=== PATIENT | female | born 1930 | race Caucasian/White ===

== ENCOUNTER 2017-06-07 10:26 | Inpatient (IN) | payer OTHER, BC ==
[~2017-06-07] VITALS: Ht 152.4 cm; Wt 89.8 kg
[~2017-06-07 10:26] MED LIST: ACTONEL35 MG PO; ALDACTONE25 MG PO; AMOXICILLIN500 MG PO; BREO ELLIPTA I1 EACH IH; BUMETANIDE1 MG PO; BUMEX0.5 MG PO; BUMEX1 MG PO; BUMEX2 MG PO; BYSTOLIC5 MG PO; CARAFATE100 MG/ML PO; CITRACAL + D M1 EACH PO; COLACE100 MG PO; CORTIZONE-10 PL57 GM TP; COUMADIN1 MG PO; COUMADIN2.5 MG PO; COUMADIN3 MG PO; COUMADIN4 MG PO; COUMADIN5 MG PO; CRESTOR20 MG PO; DESENEX85 GM TP; DUONEB 2.5-0.5 M3 ML AEROSOL; DUONEB 2.5-0.5 M3 ML PEP; FORTEO20 MICROGR SC; HYDROMORPHONE HC2 MG PO; HYOSCYAMINE0.125 MG SL; INVANZ1 GM IM; KENALOG,ARISTOC80 GM TP; LIDODERM 5% P1 PATCH TD; LIPITOR20 MG PO; LISINOPRIL10 MG PO; MELATONIN5 M1 PO; METOLAZONE2.5 MG PO; MILK OF MAGN PO; MIRALAX17 GM PO; NITROSTAT0.4 MG SL; NYSTATIN15 GM TP; OYSTER SHELL C1 EA16 PO; PATANOL OP100 DROP/5 BOTH EYES; PHENERGAN25 MG/ML IM; PHENERGAN50 MG/1 M1 IM; POLYETHYLENE GL17 GM PO; PREDNISONE5 MG PO; PRENATAL TABLE1 EAC3 PO; PREVACID30 MG PO; PRINIVIL20 MG PO; PROMETHAZINE HC25 M1 PO; PROTONIX40 MG PO; RISEDRONATE SOD35 M1 PO; ROSUVASTATIN CA20 MG PO; TOPROL XL25 MG PO; TRIAMCINOLONE A15 GM TP; TYLENOL WITH C1 EACH PO; VENTOLIN HFA18 GM IH; VITAMIN B-6100 MG PO; VITAMIN D31000 UNI2 PO; VITAMIN D31000 UNIT PO; ZESTRIL10 MG PO; ZYRTEC10 M3 PO; [UNRECOGNIZED DRUG - CODE] DT
[2017-06-07 11:24] LABS: ADD MIUA? YES; BILIRUBIN NEGATIVE; BLOOD SMALL; COLOR YELLOW ((YELLOW)); GLUCOSE (STRIP) NEGATIVE; KETONES NEGATIVE; LEUKOCYTES MODERATE; NITRITE NEGATIVE; PROTEIN (STRIP) NEGATIVE; SPECIFIC GRAVITY 1.013 (1.000-1.030); UROBILINOGEN 0.2 MG/DL (0.2-1.0)
[2017-06-07 11:31] LABS: BACTERIA RARE /HPF; EPITHELIAL CELLS RARE /HPF; HYALINE CASTS 0-5 /LPF; MUCUS TRACE /LPF; RED BLOOD CELLS 0-5 /HPF (0-5); UCUL ADDED? YES; WHITE BLOOD CELLS 20-30 /HPF (0-5)
[2017-06-07 11:57] LABS: EOSINOPHIL (%) 0.3 % (0-5); HEMATOCRIT 27.6 % (36.0-46.0); IMMATURE GRANULOCYTE (%) 0.7 % (0.0-0.7); IMMATURE GRANULOCYTE COUNT 0.1 K/uL; INSTRUMENT ABS NEUTROPHIL CT 10.2 K/uL; LYMPHOCYTE COUNT 1.3 K/uL (1.0-2.8); MCH 29.1 PG (29.0-34.0); MCHC 32.2 G/DL (30.0-36.0); MEAN PLAT.VOLUME 8.7 uM^3 (9.5-12.4); MONOCYTE (%) 13.9 % (3-12); MONOCYTE COUNT 1.9 K/uL (0-0.8); NEUTROPHIL (%) 75.5 % (45-76); NEUTROPHIL COUNT 10.2 K/uL (1.8-6.4); RBC DIS.WIDTH-CV 13.4 % (11.8-14.6); RBC DIS.WIDTH-SD 44.2 % (39-53); RED BLOOD COUNT 3.06 M/uL (3.80-5.20); WHITE BLOOD COUNT 13.5 K/uL (4.1-10.2)
[2017-06-07 12:10] LABS: MCV 90.2 FL (83-99); PLATELET COUNT 302 K/uL (156-360)
[2017-06-07 12:14] LABS: CHLORIDE 94 mEq/L (99-109); POTASSIUM 5.1 mEq/L (3.7-5.4); SODIUM 130 mEq/L (136-147)
[2017-06-07 12:16] LABS: GLUCOSE 106 mg/dL (70-99)
[2017-06-07 12:17] LABS: ANION GAP 13 MEQ/L (2-14)
[2017-06-07 12:18] LABS: TOTAL BILIRUBIN 0.5 mg/dL (0.0-1.0)
[2017-06-07 12:20] LABS: ALKALINE PHOSPHATASE 77 IU/L (3-129); GFR ESTIMATE (CALCULATED) 13 mL/min/; TROP-I INTERPRETATION NEGATIVE; TROPONIN-I 0.02 ng/mL (0.0-0.30)
[2017-06-07 12:21] LABS: UREA NITROGEN (BUN) 59 mg/dL (9-23)
[2017-06-07 12:23] LABS: LIPASE 11 U/L (1.0-51.0)
[2017-06-07] MEDS ORDERED: SERTRALINE HCL50 MG PO (15:30)
[2017-06-07] MEDS ORDERED: LEVOTHYROXINE25 MCG PO (15:30)
[2017-06-07] MEDS ORDERED: DOCUSATE SODIU100 M1 PO (15:31)
[2017-06-07] MEDS ORDERED: RANITIDINE HCL150 MG PO (15:32)
[2017-06-07] MEDS ORDERED: BUMEX1 MG PO (15:33)
[2017-06-07 15:34] LABS: INTER. NORMALIZED RATIO 3.8; PROTHROMBIN TIME 43.8 SEC (10.2-12.9)
[2017-06-07] MEDS ORDERED: CYANOCOBALAM1000 MCG PO (15:35)
[2017-06-07] MEDS ORDERED: KETOTIFEN FUMARA5 M1 BOTH EYES (15:37)
[2017-06-07] MEDS ORDERED: URSODIOL300 MG PO (15:46)
[2017-06-07] MEDS ORDERED: TYLENOL WITH C1 EACH PO (15:46)
[2017-06-07] MEDS ORDERED: SODIUM CHLORIDE45 ML BOTH NARES (15:47)
[2017-06-07] MEDS ORDERED: DERMOTIC20 ML BOTH EARS (15:48)
[2017-06-07] MEDS ORDERED: LORAZEPAM0.5 MG PO (15:50)
[2017-06-07] MEDS ORDERED: ZOFRAN ODT4 MG PO (15:51)
[2017-06-07] MEDS ORDERED: GAVISCON ES CH1 EACH PO (15:52)
[2017-06-07 17:04] VITALS: BP 138/74
[2017-06-07 18:34] LABS: CARBON DIOXIDE (BICARBONATE) 29.9 MEQ/L (20-31)
[2017-06-07 20:34] LABS: UR CREATININE CONCENTRATION 173.8 MG/DL
[2017-06-07 23:46] VITALS: BP 126/57
[2017-06-08 04:21] VITALS: BP 115/58
[2017-06-08 06:05] LABS: MCH 29.6 PG (29.0-34.0); MCHC 31.9 G/DL (30.0-36.0); MCV 92.9 FL (83-99); MEAN PLAT.VOLUME 8.8 uM^3 (9.5-12.4); PLATELET COUNT 290 K/uL (156-360); RBC DIS.WIDTH-CV 13.6 % (11.8-14.6); RBC DIS.WIDTH-SD 46.8 % (39-53); WHITE BLOOD COUNT 7.9 K/uL (4.1-10.2)
[2017-06-08 06:19] LABS: INTER. NORMALIZED RATIO 3.7; PROTHROMBIN TIME 42.9 SEC (10.2-12.9)
[2017-06-08 06:30] LABS: ANION GAP 11 MEQ/L (2-14); CHLORIDE 97 MEQ/L (99-109); GFR ESTIMATE (CALCULATED) 16 mL/min/; GLUCOSE 85 mg/dL (70-99); POTASSIUM 4.5 MEQ/L (3.7-5.4); SAMPLE HEMOLYSIS CHECK 0; SAMPLE ICTERIC CHECK 0; SAMPLE LIPEMIA CHECK 0; SODIUM 135 MEQ/L (136-147); UREA NITROGEN (BUN) 50 mg/dL (9-23); URIC ACID 11.1 mg/dL (3.1-9.2)
[2017-06-08 11:25] VITALS: BP 132/57
[2017-06-08 15:04] VITALS: BP 104/57
[2017-06-08 19:46] VITALS: BP 117/65
[2017-06-08 23:51] VITALS: BP 116/57
[2017-06-09] VITALS (7 sets, daily range): BP systolic 11–157; BP diastolic 54–69
[2017-06-09 06:37] LABS: INTER. NORMALIZED RATIO 3.4; PROTHROMBIN TIME 39.6 SEC (10.2-12.9)
[2017-06-09 06:55] LABS: ANION GAP 10 MEQ/L (2-14); CHLORIDE 99 MEQ/L (99-109); GFR ESTIMATE (CALCULATED) 22 mL/min/; GLUCOSE 79 mg/dL (70-99); POTASSIUM 4.2 MEQ/L (3.7-5.4); SAMPLE HEMOLYSIS CHECK 0; SAMPLE ICTERIC CHECK 0; SAMPLE LIPEMIA CHECK 0; SODIUM 138 MEQ/L (136-147); UREA NITROGEN (BUN) 45 mg/dL (9-23)
[2017-06-09 08:58] LABS: HEMATOCRIT 30.1 % (36.0-46.0); MCH 29.5 PG (29.0-34.0); MCHC 31.9 G/DL (30.0-36.0); MCV 92.6 FL (83-99); MEAN PLAT.VOLUME 8.6 uM^3 (9.5-12.4); PLATELET COUNT 312 K/uL (156-360); RBC DIS.WIDTH-CV 13.5 % (11.8-14.6); RBC DIS.WIDTH-SD 46.5 % (39-53); RED BLOOD COUNT 3.25 M/uL (3.80-5.20); WHITE BLOOD COUNT 8.3 K/uL (4.1-10.2)
[2017-06-09 09:27] LABS: URIC ACID 11.6 mg/dL (3.1-9.2)
[2017-06-10 00:04] VITALS: BP 124/58
[2017-06-10 03:53] VITALS: BP 112/58
[2017-06-10 06:42] LABS: INTER. NORMALIZED RATIO 2.7; PROTHROMBIN TIME 30.8 SEC (10.2-12.9)
[2017-06-10 06:48] LABS: ANION GAP 11 MEQ/L (2-14); CHLORIDE 97 MEQ/L (99-109); GFR ESTIMATE (CALCULATED) 28 mL/min/; POTASSIUM 3.8 MEQ/L (3.7-5.4); SAMPLE HEMOLYSIS CHECK 0; SAMPLE ICTERIC CHECK 0; SAMPLE LIPEMIA CHECK 0; SODIUM 139 MEQ/L (136-147); UREA NITROGEN (BUN) 41 mg/dL (9-23)
[2017-06-10 06:51] LABS: GLUCOSE 99 mg/dL (70-99)
[2017-06-10 08:23] VITALS: BP 124/64
[2017-06-10 11:21] VITALS: BP 126/65
[2017-06-10 13:10] LABS: URIC ACID 11.5 mg/dL (3.1-9.2)
[2017-06-10 15:41] VITALS: BP 125/57
[2017-06-10 20:04] VITALS: BP 120/76
[2017-06-11] VITALS: BP 124/66
[2017-06-11 03:53] VITALS: BP 130/70
[2017-06-11 06:12] LABS: INTER. NORMALIZED RATIO 2.2; PROTHROMBIN TIME 25.4 SEC (10.2-12.9)
[2017-06-11 06:51] LABS: ANION GAP 9 MEQ/L (2-14); CHLORIDE 97 MEQ/L (99-109); GFR ESTIMATE (CALCULATED) 32 mL/min/; GLUCOSE 84 mg/dL (70-99); POTASSIUM 3.9 MEQ/L (3.7-5.4); SAMPLE HEMOLYSIS CHECK 0; SAMPLE ICTERIC CHECK 0; SAMPLE LIPEMIA CHECK 0; SODIUM 139 MEQ/L (136-147); UREA NITROGEN (BUN) 35 mg/dL (9-23)
[2017-06-11 07:23] VITALS: BP 122/56
[2017-06-11 07:48] LABS: URIC ACID 12.3 mg/dL (3.1-9.2)
[2017-06-11] MEDS ORDERED: ALLOPURINOL100 MG PO (12:03)
[2017-06-11] MEDS ORDERED: FUROSEMIDE80 MG PO (12:03)
== END 2017-06-11 15:22 | DRG 683 ==
LOC: EME 10:26 → 5SOUTH 13:42 → EDOF 13:42 → ENRESERV 13:51 → 5SOUTH 16:43
PROVIDERS: Emergency Medicine; Hospitalist; Internal Medicine; Internal Medicine Nephrology; Nurse Practitioner Adult Health
DX: N17.9 Acute kidney failure, unspecified (principal); N39.0 Urinary tract infection, site not specified; E87.1 Hypo-osmolality and hyponatremia; I13.0 Hypertensive heart and chronic kidney disease with heart failure and stage 1 through stage 4 chronic kidney disease, or unspecified chronic kidney disease; I50.32 Chronic diastolic (congestive) heart failure; N18.9 Chronic kidney disease, unspecified; D63.1 Anemia in chronic kidney disease; D50.9 Iron deficiency anemia, unspecified; J44.9 Chronic obstructive pulmonary disease, unspecified; K21.9 Gastro-esophageal reflux disease without esophagitis; I44.7 Left bundle-branch block, unspecified; E86.0 Dehydration; K80.10 Calculus of gallbladder with chronic cholecystitis without obstruction; L97.929 Non-pressure chronic ulcer of unspecified part of left lower leg with unspecified severity; I08.0 Rheumatic disorders of both mitral and aortic valves; I25.10 Atherosclerotic heart disease of native coronary artery without angina pectoris; E79.0 Hyperuricemia without signs of inflammatory arthritis and tophaceous disease; S51.812A Laceration without foreign body of left forearm, initial encounter; F32.9 Major depressive disorder, single episode, unspecified; E66.9 Obesity, unspecified; Z68.39 Body mass index [BMI] 39.0-39.9, adult; M19.90 Unspecified osteoarthritis, unspecified site; M06.9 Rheumatoid arthritis, unspecified; G89.29 Other chronic pain; K64.8 Other hemorrhoids; K59.00 Constipation, unspecified; K42.9 Umbilical hernia without obstruction or gangrene; Z86.718 Personal history of other venous thrombosis and embolism; Z95.2 Presence of prosthetic heart valve; Z95.5 Presence of coronary angioplasty implant and graft; Z82.3 Family history of stroke; Z82.49 Family history of ischemic heart disease and other diseases of the circulatory system; Z22.39 Carrier of other specified bacterial diseases
CPT/HCPCS: 71020; 74176; 76770; 78226; 80053; 80069; 81003; 82570; 82803; 83690; 84300; 84484; 84550; 85025; 85027; 85610; 87040; 87077; 87086; 87186; 93005; 93306; 93970; 94640; 94640 76; 94760; 94799; 97530 GO; 99202; 99281; 99285; A9537; J0696; J0881; J1756; J1940; J2270; J2405; J7030; J7050; J7512

== ENCOUNTER 2017-07-02 18:39 | Inpatient (IN) | payer OTHER, BC ==
[~2017-07-02] VITALS: Ht 162.6 cm; Wt 90.1 kg
[~2017-07-02 18:39] MED LIST changes: +ALLOPURINOL100 MG PO; +CYANOCOBALAM1000 MCG PO; +DERMOTIC20 ML BOTH EARS; +DOCUSATE SODIU100 M1 PO; +FUROSEMIDE80 MG PO; +GAVISCON ES CH1 EACH PO; +KETOTIFEN FUMARA5 M1 BOTH EYES; +LEVOTHYROXINE25 MCG PO; +LORAZEPAM0.5 MG PO; +RANITIDINE HCL150 MG PO; +SERTRALINE HCL50 MG PO; +SODIUM CHLORIDE45 ML BOTH NARES; +URSODIOL300 MG PO; +ZOFRAN ODT4 MG PO
[2017-07-02 19:47] LABS: HEMATOCRIT 28.5 % (36.0-46.0); MCH 29.5 PG (29.0-34.0); MCV 89.3 FL (83-99); MEAN PLAT.VOLUME 8.5 uM^3 (9.5-12.4); PLATELET COUNT 280 K/uL (156-360); RBC DIS.WIDTH-CV 14.4 % (11.8-14.6); RBC DIS.WIDTH-SD 46.6 % (39-53); RED BLOOD COUNT 3.19 M/uL (3.80-5.20); WHITE BLOOD COUNT 6.7 K/uL (4.1-10.2)
[2017-07-02 19:57] LABS: CHLORIDE 88 mEq/L (99-109); POTASSIUM 4.6 mEq/L (3.7-5.4); SODIUM 128 mEq/L (136-147)
[2017-07-02 19:58] LABS: GLUCOSE 104 mg/dL (70-99)
[2017-07-02 20:00] LABS: ANION GAP 13 MEQ/L (2-14)
[2017-07-02 20:02] LABS: GFR ESTIMATE (CALCULATED) 19 mL/min/
[2017-07-02 20:03] LABS: UREA NITROGEN (BUN) 41 mg/dL (9-23)
[2017-07-02 20:08] LABS: TROP-I INTERPRETATION NEGATIVE; TROPONIN-I 0.02 ng/mL (0.0-0.30)
[2017-07-02] MEDS ORDERED: [UNRECOGNIZED DRUG - CODE] DT (21:41)
[2017-07-02] MEDS ORDERED: NYSTOP60 GM TP (21:41)
[2017-07-02] MEDS ORDERED: ALLOPURINOL100 MG PO ×2 (21:43→21:44)
[2017-07-02 23:19] LABS: INTER. NORMALIZED RATIO 2.7; PROTHROMBIN TIME 30.8 SEC (10.2-12.9)
[2017-07-03 00:05] VITALS: BP 136/78
[2017-07-03 02:14] LABS: TROP-I INTERPRETATION NEGATIVE; TROPONIN-I 0.04 ng/mL (0.0-0.30)
[2017-07-03 03:59] VITALS: BP 131/72
[2017-07-03 08:05] LABS: HEMATOCRIT 30.3 % (36.0-46.0); MCH 30.4 PG (29.0-34.0); MCHC 33.3 G/DL (30.0-36.0); MCV 91.3 FL (83-99); MEAN PLAT.VOLUME 8.8 uM^3 (9.5-12.4); PLATELET COUNT 301 K/uL (156-360); RBC DIS.WIDTH-CV 14.8 % (11.8-14.6); RBC DIS.WIDTH-SD 48.8 % (39-53); RED BLOOD COUNT 3.32 M/uL (3.80-5.20); WHITE BLOOD COUNT 8.1 K/uL (4.1-10.2)
[2017-07-03 08:30] LABS: ALKALINE PHOSPHATASE 84 IU/L (3-129); ANION GAP 6 MEQ/L (2-14); CHLORIDE 90 MEQ/L (99-109); GFR ESTIMATE (CALCULATED) 24 mL/min/; GLUCOSE 88 mg/dL (70-99); POTASSIUM 4.3 MEQ/L (3.7-5.4); SAMPLE HEMOLYSIS CHECK 0; SAMPLE ICTERIC CHECK 0; SAMPLE LIPEMIA CHECK 0; SODIUM 129 MEQ/L (136-147); TOTAL BILIRUBIN 0.7 MG/DL (0.0-1.0); UREA NITROGEN (BUN) 37 mg/dL (9-23)
[2017-07-03 08:42] LABS: TROP-I INTERPRETATION NEGATIVE; TROPONIN-I 0.04 ng/mL (0.0-0.30)
[2017-07-03 08:58] VITALS: BP 117/56
[2017-07-03 12:20] LABS: INTER. NORMALIZED RATIO 2.9; PROTHROMBIN TIME 33.5 SEC (10.2-12.9)
[2017-07-03 16:48] VITALS: BP 122/57
[2017-07-03 19:36] VITALS: BP 145/65
[2017-07-03 23:31] VITALS: BP 138/66
[2017-07-04 06:32] LABS: INTER. NORMALIZED RATIO 3.2; PROTHROMBIN TIME 36.9 SEC (10.2-12.9)
[2017-07-04 06:33] LABS: EOSINOPHIL (%) 1.9 % (0-5); EOSINOPHIL COUNT 0.2 K/uL (0-0.3); HEMATOCRIT 29.1 % (36.0-46.0); IMMATURE GRANULOCYTE (%) 0.5 % (0.0-0.7); INSTRUMENT ABS NEUTROPHIL CT 5.5 K/uL; LYMPHOCYTE COUNT 1.1 K/uL (1.0-2.8); MCH 28.9 PG (29.0-34.0); MCV 90.4 FL (83-99); MEAN PLAT.VOLUME 8.7 uM^3 (9.5-12.4); MONOCYTE (%) 14.2 % (3-12); MONOCYTE COUNT 1.1 K/uL (0-0.8); NEUTROPHIL (%) 69.1 % (45-76); NEUTROPHIL COUNT 5.5 K/uL (1.8-6.4); PLATELET COUNT 297 K/uL (156-360); RBC DIS.WIDTH-CV 14.8 % (11.8-14.6); RBC DIS.WIDTH-SD 48.2 % (39-53); RED BLOOD COUNT 3.22 M/uL (3.80-5.20); WHITE BLOOD COUNT 7.9 K/uL (4.1-10.2)
[2017-07-04 06:50] LABS: ANION GAP 8 MEQ/L (2-14); CHLORIDE 93 MEQ/L (99-109); GFR ESTIMATE (CALCULATED) 35 mL/min/; GLUCOSE 90 mg/dL (70-99); POTASSIUM 3.8 MEQ/L (3.7-5.4); SAMPLE HEMOLYSIS CHECK 0; SAMPLE ICTERIC CHECK 0; SAMPLE LIPEMIA CHECK 0; SODIUM 132 MEQ/L (136-147); UREA NITROGEN (BUN) 28 mg/dL (9-23)
[2017-07-04 07:10] VITALS: BP 151/69
[2017-07-04 16:00] VITALS: BP 132/60
[2017-07-04 22:44] VITALS: BP 141/78
[2017-07-05 06:48] LABS: INTER. NORMALIZED RATIO 2.9; PROTHROMBIN TIME 33.3 SEC (10.2-12.9)
[2017-07-05 06:55] VITALS: BP 151/70
[2017-07-05 07:07] LABS: ANION GAP 8 MEQ/L (2-14); CHLORIDE 94 MEQ/L (99-109); GFR ESTIMATE (CALCULATED) 45 mL/min/; GLUCOSE 97 mg/dL (70-99); POTASSIUM 3.9 MEQ/L (3.7-5.4); SAMPLE HEMOLYSIS CHECK 0; SAMPLE ICTERIC CHECK 0; SAMPLE LIPEMIA CHECK 0; SODIUM 134 MEQ/L (136-147); UREA NITROGEN (BUN) 20 mg/dL (9-23)
[2017-07-05 11:45] VITALS: BP 140/78
== END 2017-07-05 14:00 | DRG 683 ==
LOC: EME → EDBD 18:39 → ENRESERV 22:17 → 2EAST 22:19 → EDOF 22:19 → ENRESERV 22:34 → 2EAST 23:39
PROVIDERS: Internal Medicine
DX: N17.9 Acute kidney failure, unspecified (principal); W01.0XXA Fall on same level from slipping, tripping and stumbling without subsequent striking against object, initial encounter; E87.1 Hypo-osmolality and hyponatremia; S37.009A Unspecified injury of unspecified kidney, initial encounter; S22.39XA Fracture of one rib, unspecified side, initial encounter for closed fracture; Y92.129 Unspecified place in nursing home as the place of occurrence of the external cause; N18.3 Chronic kidney disease, stage 3 (moderate); I12.9 Hypertensive chronic kidney disease with stage 1 through stage 4 chronic kidney disease, or unspecified chronic kidney disease; J44.9 Chronic obstructive pulmonary disease, unspecified; M06.9 Rheumatoid arthritis, unspecified; Z68.38 Body mass index [BMI] 38.0-38.9, adult; J98.11 Atelectasis; R07.89 Other chest pain; I35.0 Nonrheumatic aortic (valve) stenosis; K21.9 Gastro-esophageal reflux disease without esophagitis; Z86.718 Personal history of other venous thrombosis and embolism; Z95.2 Presence of prosthetic heart valve; Z95.5 Presence of coronary angioplasty implant and graft
CPT/HCPCS: 70450; 71010; 71020; 72170; 73590; 80048; 80053; 81003; 84484; 85025; 85027; 85610; 93005; 94640; 94640 76; 94799; 99202; 99281; 99284; J2270; J7030; J7512

== ENCOUNTER 2017-07-20 11:17 | Inpatient (IN) | payer OTHER, BC ==
[~2017-07-20] VITALS: Ht 152.4 cm; Wt 85.6 kg
[~2017-07-20 11:17] MED LIST changes: +NYSTOP60 GM TP
[2017-07-20 13:22] LABS: EOSINOPHIL (%) 1.1 % (0-5); EOSINOPHIL COUNT 0.2 K/uL (0-0.3); HEMATOCRIT 31.1 % (36.0-46.0); IMMATURE GRANULOCYTE (%) 0.6 % (0.0-0.7); IMMATURE GRANULOCYTE COUNT 0.1 K/uL; INSTRUMENT ABS NEUTROPHIL CT 12.5 K/uL; LYMPHOCYTE COUNT 1.2 K/uL (1.0-2.8); MCH 28.8 PG (29.0-34.0); MCHC 31.2 G/DL (30.0-36.0); MCV 92.3 FL (83-99); MEAN PLAT.VOLUME 8.8 uM^3 (9.5-12.4); MONOCYTE (%) 12.8 % (3-12); MONOCYTE COUNT 2.1 K/uL (0-0.8); NEUTROPHIL (%) 77.9 % (45-76); NEUTROPHIL COUNT 12.5 K/uL (1.8-6.4); PLATELET COUNT 315 K/uL (156-360); RBC DIS.WIDTH-CV 15.4 % (11.8-14.6); RBC DIS.WIDTH-SD 52.5 % (39-53); RED BLOOD COUNT 3.37 M/uL (3.80-5.20)
[2017-07-20 13:26] LABS: INTER. NORMALIZED RATIO 3.7; PROTHROMBIN TIME 42.5 SEC (10.2-12.9)
[2017-07-20 13:34] LABS: CHLORIDE 91 mEq/L (99-109); POTASSIUM 4.1 mEq/L (3.7-5.4); SODIUM 132 mEq/L (136-147)
[2017-07-20 13:36] LABS: GLUCOSE 92 mg/dL (70-99)
[2017-07-20 13:37] LABS: ANION GAP 13 MEQ/L (2-14)
[2017-07-20 13:38] LABS: TOTAL BILIRUBIN 0.5 mg/dL (0.0-1.0)
[2017-07-20 13:40] LABS: ALKALINE PHOSPHATASE 107 IU/L (3-129); GFR ESTIMATE (CALCULATED) 8 mL/min/
[2017-07-20 13:41] LABS: UREA NITROGEN (BUN) 43 mg/dL (9-23)
[2017-07-20 13:44] LABS: TROP-I INTERPRETATION NEGATIVE; TROPONIN-I 0.06 ng/mL (0.0-0.30)
[2017-07-20 17:07] LABS: ADD MIUA? YES; BILIRUBIN NEGATIVE; BLOOD MODERATE; COLOR AMBER ((YELLOW)); GLUCOSE (STRIP) NEGATIVE; KETONES 5; LEUKOCYTES MODERATE; NITRITE NEGATIVE; PROTEIN (STRIP) 30; SPECIFIC GRAVITY 1.018 (1.000-1.030); UROBILINOGEN 0.2 MG/DL (0.2-1.0)
[2017-07-20 17:23] LABS: AMORPHOUS URATES CRYSTALS 2+; BACTERIA 3+ /HPF; CASTS NONE SEEN /LPF; CRYSTALS PRESENT; EPITHELIAL CELLS 1+ /HPF; MUCUS NONE SEEN /LPF; UCUL ADDED? YES; WHITE BLOOD CELLS 20-30 /HPF (0-5)
[2017-07-20 22:15] VITALS: BP 116/69
[2017-07-20] MEDS ORDERED: ZOLOFT50 MG PO (22:50)
[2017-07-20] MEDS ORDERED: ITCHY EYE5 ML BOTH EYES (23:07)
[2017-07-20] MEDS ORDERED: ZESTRIL20 MG PO (23:17)
[2017-07-20] MEDS ORDERED: MIRALAX17 GM PO (23:26)
[2017-07-21 00:05] VITALS: BP 100/51
[2017-07-21] MEDS ORDERED: NEPHRO-VITE,1 TABLET PO (00:26)
[2017-07-21 03:35] VITALS: BP 106/51
[2017-07-21 05:17] LABS: EOSINOPHIL (%) 2.7 % (0-5); EOSINOPHIL COUNT 0.3 K/uL (0-0.3); HEMATOCRIT 28.3 % (36.0-46.0); IMMATURE GRANULOCYTE (%) 0.6 % (0.0-0.7); IMMATURE GRANULOCYTE COUNT 0.1 K/uL; INSTRUMENT ABS NEUTROPHIL CT 8.8 K/uL; LYMPHOCYTE COUNT 1.3 K/uL (1.0-2.8); MCH 29.9 PG (29.0-34.0); MCHC 31.4 G/DL (30.0-36.0); MEAN PLAT.VOLUME 9.3 uM^3 (9.5-12.4); MONOCYTE (%) 14.6 % (3-12); MONOCYTE COUNT 1.8 K/uL (0-0.8); NEUTROPHIL (%) 71.6 % (45-76); NEUTROPHIL COUNT 8.8 K/uL (1.8-6.4); PLATELET COUNT 313 K/uL (156-360); RBC DIS.WIDTH-CV 15.7 % (11.8-14.6); RBC DIS.WIDTH-SD 54.6 % (39-53); RED BLOOD COUNT 2.98 M/uL (3.80-5.20); WHITE BLOOD COUNT 12.3 K/uL (4.1-10.2)
[2017-07-21 05:30] LABS: INTER. NORMALIZED RATIO 4.1; PROTHROMBIN TIME 47.8 SEC (10.2-12.9)
[2017-07-21 07:52] VITALS: BP 103/51
[2017-07-21 10:06] LABS: ANION GAP 12 MEQ/L (2-14); CHLORIDE 96 MEQ/L (99-109); GLUCOSE 78 mg/dL (70-99); POTASSIUM 4.1 MEQ/L (3.7-5.4); SAMPLE HEMOLYSIS CHECK 0; SAMPLE ICTERIC CHECK 0; SAMPLE LIPEMIA CHECK 0; SODIUM 133 MEQ/L (136-147); UREA NITROGEN (BUN) 45 mg/dL (9-23)
[2017-07-21 10:07] LABS: CREATINE KINASE 1233 IU/L (1-294); GFR ESTIMATE (CALCULATED) 10 mL/min/
[2017-07-21 11:53] VITALS: BP 115/53
[2017-07-21 16:00] LABS: IRON 14 MCG/DL (35-150)
[2017-07-21 16:45] VITALS: BP 103/52
[2017-07-21 19:54] VITALS: BP 112/52
[2017-07-22] VITALS (9 sets, daily range): BP systolic 104–143; BP diastolic 53–65
[2017-07-22 05:24] LABS: EOSINOPHIL (%) 4.6 % (0-5); EOSINOPHIL COUNT 0.4 K/uL (0-0.3); HEMATOCRIT 28.8 % (36.0-46.0); IMMATURE GRANULOCYTE (%) 0.5 % (0.0-0.7); IMMATURE GRANULOCYTE COUNT 0.1 K/uL; INSTRUMENT ABS NEUTROPHIL CT 6.1 K/uL; LYMPHOCYTE COUNT 1.3 K/uL (1.0-2.8); MCH 29.2 PG (29.0-34.0); MCHC 30.9 G/DL (30.0-36.0); MCV 94.4 FL (83-99); MEAN PLAT.VOLUME 8.9 uM^3 (9.5-12.4); MONOCYTE (%) 14.8 % (3-12); MONOCYTE COUNT 1.4 K/uL (0-0.8); NEUTROPHIL (%) 65.9 % (45-76); NEUTROPHIL COUNT 6.1 K/uL (1.8-6.4); PLATELET COUNT 312 K/uL (156-360); RBC DIS.WIDTH-CV 15.9 % (11.8-14.6); RED BLOOD COUNT 3.05 M/uL (3.80-5.20); WHITE BLOOD COUNT 9.3 K/uL (4.1-10.2)
[2017-07-22 05:30] LABS: INTER. NORMALIZED RATIO 3.6
[2017-07-22 05:53] LABS: ANION GAP 12 MEQ/L (2-14); CHLORIDE 101 MEQ/L (99-109); CREATINE KINASE 595 IU/L (1-294); GFR ESTIMATE (CALCULATED) 14 mL/min/; GLUCOSE 68 mg/dL (70-99); POTASSIUM 4.1 MEQ/L (3.7-5.4); SAMPLE HEMOLYSIS CHECK 0; SAMPLE ICTERIC CHECK 0; SAMPLE LIPEMIA CHECK 0; SODIUM 135 MEQ/L (136-147); UREA NITROGEN (BUN) 46 mg/dL (9-23)
[2017-07-22 09:31] LABS: TROP-I INTERPRETATION NEGATIVE; TROPONIN-I 0.06 ng/mL (0.0-0.30)
[2017-07-23] VITALS (8 sets, daily range): BP systolic 120–146; BP diastolic 62–72
[2017-07-23 07:51] LABS: ANION GAP 11 MEQ/L (2-14); CHLORIDE 104 MEQ/L (99-109); GFR ESTIMATE (CALCULATED) 28 mL/min/; GLUCOSE 69 mg/dL (70-99); POTASSIUM 4.6 MEQ/L (3.7-5.4); SAMPLE HEMOLYSIS CHECK 0; SAMPLE ICTERIC CHECK 0; SAMPLE LIPEMIA CHECK 0; SODIUM 135 MEQ/L (136-147); UREA NITROGEN (BUN) 38 mg/dL (9-23)
[2017-07-23 09:55] LABS: INTER. NORMALIZED RATIO 3.4; PROTHROMBIN TIME 39.2 SEC (10.2-12.9)
[2017-07-24 04:23] VITALS: BP 156/75
[2017-07-24 07:18] LABS: BASOPHIL COUNT 0.1 K/uL (0-0.1); EOSINOPHIL (%) 2.4 % (0-5); EOSINOPHIL COUNT 0.2 K/uL (0-0.3); HEMATOCRIT 31.3 % (36.0-46.0); IMMATURE GRANULOCYTE COUNT 0.1 K/uL; INSTRUMENT ABS NEUTROPHIL CT 5.5 K/uL; LYMPHOCYTE COUNT 0.9 K/uL (1.0-2.8); MCH 28.7 PG (29.0-34.0); MCHC 31.3 G/DL (30.0-36.0); MCV 91.8 FL (83-99); MEAN PLAT.VOLUME 8.6 uM^3 (9.5-12.4); MONOCYTE (%) 16.2 % (3-12); MONOCYTE COUNT 1.3 K/uL (0-0.8); NEUTROPHIL COUNT 5.5 K/uL (1.8-6.4); PLATELET COUNT 334 K/uL (156-360); RBC DIS.WIDTH-CV 15.9 % (11.8-14.6); RBC DIS.WIDTH-SD 52.9 % (39-53); RED BLOOD COUNT 3.41 M/uL (3.80-5.20)
[2017-07-24 07:21] LABS: INTER. NORMALIZED RATIO 2.8; PROTHROMBIN TIME 32.1 SEC (10.2-12.9)
[2017-07-24 07:42] LABS: ANION GAP 12 MEQ/L (2-14); CHLORIDE 105 MEQ/L (99-109); GLUCOSE 77 mg/dL (70-99); POTASSIUM 3.9 MEQ/L (3.7-5.4); SAMPLE HEMOLYSIS CHECK 0; SAMPLE ICTERIC CHECK 0; SAMPLE LIPEMIA CHECK 0; SODIUM 140 MEQ/L (136-147); UREA NITROGEN (BUN) 30 mg/dL (9-23)
[2017-07-24 07:43] LABS: GFR ESTIMATE (CALCULATED) 41 mL/min/
[2017-07-24 09:00] VITALS: BP 141/65
[2017-07-24 17:20] LABS: C DIFF TOXIN NEGATIVE (NEGATIVE)
[2017-07-24 17:21] LABS: PROBE CHECK PASS; SPECIMEN PROCESSING CONTROL PASS
[2017-07-24 19:35] VITALS: BP 130/68
[2017-07-24 22:51] VITALS: BP 117/68
[2017-07-25 04:28] VITALS: BP 139/70
[2017-07-25 05:46] LABS: INTER. NORMALIZED RATIO 2.5; PROTHROMBIN TIME 28.6 SEC (10.2-12.9)
[2017-07-25 09:00] VITALS: BP 143/82
[2017-07-25 20:00] VITALS: BP 36/68
[2017-07-26 00:30] VITALS: BP 45/80
[2017-07-26 06:11] LABS: INTER. NORMALIZED RATIO 2.1; PROTHROMBIN TIME 24.2 SEC (10.2-12.9)
[2017-07-26 09:30] VITALS: BP 100/60
[2017-07-26] MEDS ORDERED: MORPHINE S10 MG/5 ML PO (14:05)
[2017-07-27 00:42] VITALS: BP 130/70
[2017-07-27 04:48] LABS: PROTHROMBIN TIME 22.4 SEC (10.2-12.9)
[2017-07-27 12:02] VITALS: BP 134/58
== END 2017-07-27 17:59 | disposition hospice, home (50) | DRG 683 ==
LOC: EME 11:17 → ENRESERV 18:40 → 4EAST 18:40 → EDOF 18:40 → ENRESERV 19:33 → 4EAST 21:45 → ENPENDDIS 07-27 → 4EAST 07-27 17:59
PROVIDERS: Emergency Medicine; Family Medicine Sports Medicine; Internal Medicine
DX: N17.0 Acute kidney failure with tubular necrosis (principal); N39.0 Urinary tract infection, site not specified; E87.1 Hypo-osmolality and hyponatremia; E86.0 Dehydration; E87.79 Other fluid overload; I95.9 Hypotension, unspecified; J44.9 Chronic obstructive pulmonary disease, unspecified; I13.0 Hypertensive heart and chronic kidney disease with heart failure and stage 1 through stage 4 chronic kidney disease, or unspecified chronic kidney disease; I50.32 Chronic diastolic (congestive) heart failure; I48.91 Unspecified atrial fibrillation; N18.3 Chronic kidney disease, stage 3 (moderate); B96.20 Unspecified Escherichia coli [E. coli] as the cause of diseases classified elsewhere; Z16.12 Extended spectrum beta lactamase (ESBL) resistance; F03.90 Unspecified dementia, unspecified severity, without behavioral disturbance, psychotic disturbance, mood disturbance, and anxiety; I25.10 Atherosclerotic heart disease of native coronary artery without angina pectoris; E78.5 Hyperlipidemia, unspecified; D50.9 Iron deficiency anemia, unspecified; K21.9 Gastro-esophageal reflux disease without esophagitis; M10.9 Gout, unspecified; M06.9 Rheumatoid arthritis, unspecified; M19.90 Unspecified osteoarthritis, unspecified site; F32.9 Major depressive disorder, single episode, unspecified; F41.9 Anxiety disorder, unspecified; G89.29 Other chronic pain; I87.8 Other specified disorders of veins; J30.9 Allergic rhinitis, unspecified; E03.9 Hypothyroidism, unspecified; Z66 Do not resuscitate; Z51.5 Encounter for palliative care; Z96.642 Presence of left artificial hip joint; Z87.891 Personal history of nicotine dependence; Z79.01 Long term (current) use of anticoagulants; Z87.440 Personal history of urinary (tract) infections; Z95.2 Presence of prosthetic heart valve; Z95.5 Presence of coronary angioplasty implant and graft; Z86.718 Personal history of other venous thrombosis and embolism; Z87.01 Personal history of pneumonia (recurrent)
CPT/HCPCS: 71010; 76770; 80048; 80053; 80069; 81003; 82436; 82550; 82570; 82746; 83540; 83605; 84156; 84300; 84466; 84484; 84540; 85025; 85025 91; 85610; 86334; 86335; 87040; 87077; 87086; 87186; 87493; 87641; 92523 GN; 92610 GN; 93005; 94640; 94640 76; 94760; 94799; 97532 GN; 99202; 99281; 99285; J0696; J1335; J1756; J1940; J2543; J3370; J7030; J7050; J7512